=== PATIENT | female | born 1965 | race Caucasian/White ===

== ENCOUNTER → 2020-04-27 | Outpatient (CLI) | payer OTHER ==
[2020-04-27 10:47] VITALS: BP 130/89; PULSE 100; RESP 18; TEMP 98.2
--- NOTE | 2020-04-27 11:40 | P.GSHP ---
History of Present Illness H&P Date: 04/27/20 Chief Complaint: abnormal left breast ultra-sound, pain left breast Lizzie is a 54 year old white female seen in consultation for Jess Maciel for a complaint of pain in the left breast. She had a bilateral mammogram performed on 10/19/2019 which was stable BIRADS to prevent developed pain and had an ultrasound of the left breast and right breast performed on no sonographic evidence of concern was noted in the right breast in the left breast a minimum minimally complicated cyst measuring 0.9 x 0.5 cm was noted at the 4 o'clock position. The patient states that she has had some left breast pain for about 12 months. The pain was in the upper breast/chest wall. The patient states that the pain or discomfort occurs every 2-3 weeks. She is uncertain as to why spot that the pain is in. Last for less than 5 minutes when it occurs. The patient is described as sharp in nature. Does not know anything that precipitates the pain. It goes away spontaneously. She has not noted any lumps masses or nodules in either breast. She is not complaining of any nipple discharge or skin changes. She has not had any recent trauma or infection in either breast. She is not complaining of any discomfort in the right breast. Caffeine: coffee 3 cups/ day Nicotine: Negative michael-bromine: occasional hormones: none Family History: sister: sister breast cancer mid 50's maternal grandmother: cervical cancer Hormonal history: menarche: 14 , breast fed: yes, age at first : 24 menopause: hysterectomy at 44; done for bleeding no cancer, took ovaries hormones: none Surgical history: Total abdominal hysterectomy Cholecystectomy Tonsillectomy Medical history: Migraines Neuropathy Social History: nicotine: none alcohol: occasional drugs: none - Constitutional Constitutional: Reports sweats - EENT Comment: floaters left eye, post vitreous detachment on going Eyes: denies blurred vision, denies pain Ears: deny: decreased hearing, tinnitus Ears, nose, mouth and throat: Reports headache - Breasts Breasts: bilateral: as per HPI - Cardiovascular Cardiovascular: Reports chest pain - Respiratory Respiratory: Denies cough, Denies 7 - Gastrointestinal Gastrointestinal: Denies abdominal pain, Denies diarrhea, Denies nausea, Denies vomiting - Genitourinary (Female) Genitourinary: Denies dysuria, Denies hematuria - Menstruation Menstruation: Reports post hysterectomy - Musculoskeletal Comment: bilateral knee pain, left worse than right Musculoskeletal: Denies myalgias - Integumentary Integumentary: Denies pruritus, Denies rash - Neurological Comment: neuropathy Neurological: Reports numbness, Reports weakness - Psychiatric Psychiatric: Reports anxiety, Reports depression - Endocrine Comment: gain 100 pounds in 10 years Endocrine: Reports weight change, Denies fatigue - Hematologic/Lymphatic Comment: none - Allergic/Immunologic Allergic/Immunologic: Reports seasonal allergies Past Medical History History of Any Multi-Drug Resistant Organisms: None Reported Smoking Status: Never smoker Medications and Allergies Home Medications Medication Instructions Recorded Confirmed Type Magnesium 200 mg PO DAILY 04/27/20 04/27/20 History Naproxen [Naprosyn] 500 mg PO Q12HR 04/27/20 04/27/20 History Omeprazole 20 mg PO DAILY 04/27/20 04/27/20 History Rizatriptan Benzoate [Rizatriptan] 10 mg PO DAILY PRN 04/27/20 04/27/20 History Allergies Allergy/AdvReac Type Severity Reaction Status Date / Time tramadol AdvReac Confusion Unverified 04/27/20 10:47 Surgical - Exam Vital Signs Temp Pulse Resp BP Pulse Ox 98.2 F 100 18 130/89 94 L 04/27/20 10:38 04/27/20 10:38 04/27/20 10:38 04/27/20 10:38 04/27/20 10:38 BMI 43.5 - General obese - Eyes normal ocular movement - ENT no hearing loss - Neck no masses, trachea midline - Respiratory normal expansion, normal respiratory effort, clear to auscultation - Cardiovascular Rhythm: regular Heart Sounds: normal: S1, S2 - Abdomen Abdomen: soft, non tender, no guarding, no rigid, no rebound - Integumentary normal turgor - Neurologic no disoriented, no combative - Musculoskeletal normal gait - Psychiatric oriented to time, oriented to person, oriented to place, speech is normal, memory intact breast exam: BRA: 38DD inspection: bilateral grade 3 ptosis palpation: Right breast: Multi-positional exam fibrocystic changes, no dominant masses or nodules of concern Right axilla: No adenopathy of concern Left breast: Multiple position exam fibrocystic changes, mild tenderness in the 12 o'clock position no discrete lesions of concern appreciated, no lesions of concern noted at the 4 o'clock position with a ultrasound cystic lesion was noted Left axilla: No adenopathy of concern Results mammogram, ultrasound reports reviewed Assessment and Plan Assessment: Impression: History of migraines Fibrocystic breast changes Abnormal left breast ultrasound Left breast mastodynia Family history of breast cancer in sister at 53 Plan: 1. Nothing at this time which would warrant interventional biopsy 2. Repeat left breast ultrasound in 6 months 3. Causes of mastodynia related to fibrocystic changes discussed suggest decreasing caffeine intake 4. Follow up sooner if any questions of concern CC: Jess Rascon encounter 45 minutes, > 50% of time in planning and counselling
== END | disposition home or self-care (01) ==
LOC: WWCWWP 10:18
PROVIDERS: ATTEND Surgery
DX: Z53.9 Procedure and treatment not carried out, unspecified reason (principal)